=== PATIENT | male | born 2000 | race Caucasian/White ===

== ENCOUNTER 2024-12-22 20:05 | Emergency (ER) | payer SELFPAY ==
[~2024-12-22] VITALS: Ht 177.8 cm; Wt 93.0 kg
[2024-12-22] MEDS ORDERED: HYDROMORPHONE 1 MG/1 ML DISP.SYRIN ONE (20:26)
[2024-12-22] MEDS ORDERED: HYDROMORPHONE 1 MG/1 ML DISP.SYRIN IV ONE (20:30)
[2024-12-22] MEDS: HYDROMORPHONE 1 MG/1 ML DISP.SYRIN IM ONE (20:38)
[2024-12-22] MEDS ORDERED: KETOROLAC TROMETHAMINE 30 MG INJ ONE (20:48)
[2024-12-22] MEDS: KETOROLAC TROMETHAMINE 30 MG INJ IVP ONE (20:56)
[2024-12-22] MEDS ORDERED: PROPOFOL 200 MG/20 ML BOTTLE ONE (20:59)
[2024-12-22] MEDS ORDERED: KETAMINE HCL 500 MG/5 ML VIAL ONE (21:00)
[2024-12-22] MEDS: PROPOFOL 200 MG/20 ML BOTTLE IV ONE (21:10)
[2024-12-22] MEDS: KETAMINE HCL 500 MG/10 ML INJ IV ONE (21:10)
[2024-12-22 22:33] VITALS: BP 158/94; TEMP 98.9; O2SAT 100
== END 2024-12-22 22:35 | disposition home or self-care (01) ==
LOC: ER 20:05
DX: S43.014A Anterior dislocation of right humerus, initial encounter (principal); X58.XXXA Exposure to other specified factors, initial encounter; Y93.71 Activity, boxing; Y92.89 Other specified places as the place of occurrence of the external cause; Y99.8 Other external cause status
CPT/HCPCS: 99285; 23650; 96374; 73030; 99152; 96372; 73020; J1885; J1171; J3490 ×2; A4606; A4663; G0500